=== PATIENT | male | born 1985 | race Caucasian/White ===

== ENCOUNTER 2017-09-23 14:15 | Emergency (ER) | payer OTHER ==
[~2017-09-23] VITALS: Ht 188 cm; Wt 84.0 kg
[2017-09-23 14:37] VITALS: BP 139/79; PULSE 90; RESP 16; TEMP 99.2; O2SAT 98
[2017-09-23] MEDS ORDERED: IBUPROFEN 800 MG TAB PO ONE (14:45)
[2017-09-23] MEDS ORDERED: BUPR1SUB6 SL (14:46)
--- NOTE | 2017-09-23 15:06 | PD ---
HPI Chief Complaint: Psychiatric Symptoms Time Seen by Provider: 14:39 Travel History International Travel<30 days: No Contact w/Intl Traveler<30days: No Traveled to known affect area: No History of Present Illness HPI 31-year-old male brought in under the Cervantes act for suicidal ideation. He reports that he wants to kill himself by either overdosing or driving into a tree. Patient states he woke up with some right-sided hip leg pain which has been radicular in nature. He denies any specific injury. Pain in the hip is improved with ambulation since this morning, but still feels about a 8 out of 10. He denies significant weakness or changes in bowel or bladder. He has no known drug allergies. PFSH Past Medical History ?: Not Social History Alcohol Use: Yes Tobacco Use: Yes Substance Use: Yes Allergies-Medications (Allergen,Severity, Reaction): Coded Allergies: No Known Allergies (Unverified , 09/23/17) Reported Meds & Prescriptions Reported Meds & Active Scripts Active Reported Buprenorphine-Naloxone 8-2 Mg Subl 1 Tab SL BID Review of Systems Except as stated in HPI: all other systems reviewed are Neg General / Constitutional: No: Fever Eyes: No: Visual changes HENT: No: Headaches Cardiovascular: No: Chest Pain or Discomfort Respiratory: No: Shortness of Breath Gastrointestinal: No: Abdominal Pain Genitourinary: No: Dysuria Musculoskeletal: Positive: Arthralgias, Limited ROM, Pain, No: Myalgias Skin: No Rash Neurologic: No: Weakness Psychiatric: No: Depression Endocrine: No: Polydipsia Hematologic/Lymphatic: No: Easy Bruising Physical Exam Narrative GENERAL: Patient appears in mild distress SKIN: Warm and dry. Normal color. Normal turgor. No rash. HEAD: Atraumatic. Normocephalic. EYES: Pupils equal and round. No scleral icterus. No injection or drainage. ENT: No nasal bleeding or discharge. Mucous membranes pink and moist. Pharynx is clear. Airways patent. NECK: Trachea midline. Supple and nontender CARDIOVASCULAR: Regular rate and rhythm. RESPIRATORY: No accessory muscle use. Clear to auscultation. Breath sounds equal bilaterally. GASTROINTESTINAL: Abdomen soft, non-tender, nondistended. Hepatic and splenic margins not palpable. MUSCULOSKELETAL: Extremities without clubbing, cyanosis, or edema. No obvious deformities. Patient has soft tissue tenderness along the right lower lumbar spine into the sciatic notch consistent with sciatica. There is no sign of bony involvement. No weakness is noted. Deep tendon reflexes are equal bilaterally. NEUROLOGICAL: Awake and alert. No obvious cranial nerve deficits. Motor grossly within normal limits. Five out of 5 muscle strength in the arms and legs. Normal speech. Data Data Last Documented VS Vital Signs Date Time Temp Pulse Resp B/P (MAP) Pulse Ox O2 Delivery O2 Flow Rate FiO2 09/23/17 21:43 98.0 70 19 123/76 (92) 98 Room Air Orders Orders Complete Blood Count With Diff (09/23/17 14:40) Comprehensive Metabolic Panel (09/23/17 14:40) Thyroid Stimulating Hormone (09/23/17 14:40) Urinalysis - C+S If Indicated (09/23/17 14:40) Psych Screen (09/23/17 14:40) Drug Screen, Random Urine (09/23/17 14:40) Alcohol (Ethanol) (09/23/17 14:40) Ibuprofen (Motrin) (09/23/17 14:45) Diet Regular Basic (09/23/17 Dinner) Ziprasidone Inj (Geodon Inj) (09/23/17 16:15) Diphenhydramine Inj (Benadryl Inj) (09/23/17 16:15) Diphenhydramine Inj (Benadryl Inj) (09/23/17 16:04) Ziprasidone Inj (Geodon Inj) (09/23/17 16:04) Nicotine 21 Mg Patch.24 Hr (Habitrol 21 (09/23/17 16:15) Labs Laboratory Tests Test 09/23/17 14:47 09/23/17 15:40 White Blood Count 7.9 TH/MM3 Red Blood Count 4.84 MIL/MM3 Hemoglobin 14.9 GM/DL Hematocrit 42.9 % Mean Corpuscular Volume 88.6 FL Mean Corpuscular Hemoglobin 30.8 PG Mean Corpuscular Hemoglobin Concent 34.7 % Red Cell Distribution Width 12.5 % Platelet Count 228 TH/MM3 Mean Platelet Volume 7.3 FL Neutrophils (%) (Auto) 67.5 % Lymphocytes (%) (Auto) 22.0 % Monocytes (%) (Auto) 8.6 % Eosinophils (%) (Auto) 1.4 % Basophils (%) (Auto) 0.5 % Neutrophils # (Auto) 5.3 TH/MM3 Lymphocytes # (Auto) 1.7 TH/MM3 Monocytes # (Auto) 0.7 TH/MM3 Eosinophils # (Auto) 0.1 TH/MM3 Basophils # (Auto) 0.0 TH/MM3 CBC Comment DIFF FINAL Differential Comment Blood Urea Nitrogen 8 MG/DL Creatinine 0.87 MG/DL Random Glucose 126 MG/DL Total Protein 7.8 GM/DL Albumin 3.8 GM/DL Calcium Level 8.7 MG/DL Alkaline Phosphatase 76 U/L Aspartate Amino Transf (AST/SGOT) 212 U/L Alanine Aminotransferase (ALT/SGPT) 134 U/L Total Bilirubin 0.6 MG/DL Sodium Level 141 MEQ/L Potassium Level 3.8 MEQ/L Chloride Level 105 MEQ/L Carbon Dioxide Level 28.2 MEQ/L Anion Gap 8 MEQ/L Estimat Glomerular Filtration Rate 102 ML/MIN Thyroid Stimulating Hormone 3rd Gen 0.871 uIU/ML Ethyl Alcohol Level LESS THAN 3 MG/DL Urine Color YELLOW Urine Turbidity CLEAR Urine pH 6.0 Urine Specific [place] 1.028 Urine Protein 30 mg/dL Urine Glucose (UA) NEG mg/dL Urine Ketones NEG mg/dL Urine Occult Blood NEG Urine Nitrite NEG Urine Bilirubin NEG Urine Urobilinogen 2.0 MG/DL Urine Leukocyte Esterase NEG Urine Squamous Epithelial Cells <1 /hpf Urine Mucus FEW /lpf Microscopic Urinalysis Comment CULT NOT INDICATED Urine Opiates Screen POS Urine Barbiturates Screen NEG Urine Amphetamines Screen NEG Urine Benzodiazepines Screen POS Urine Cocaine Screen POS Urine Cannabinoids Screen POS MDM Medical Decision Making Medical Screen Exam Complete: Yes Emergency Medical Condition: Yes Differential Diagnosis Cervantes act. Suicidal ideation. Lumbar back strain. Sciatica. Narrative Course Psych screen is ordered. Labs ordered including CBC, CMP, drug screen, thyroid screen, urinalysis, and alcohol level. Patient is given ibuprofen 800 mg p.o. Patient is medically cleared for psychiatric evaluation. Condition: Stable Marcelo Collazo September 23, 2017 15:06
[2017-09-23 15:54] LABS: AUTOMATED NEUTROPHIL # 5.3 TH/MM3 (1.8-7.7); BASOPHIL % 0.5 % (0.0-2.0); EOSINOPHIL # 0.1 TH/MM3 (0-0.4); EOSINOPHIL % 1.4 % (0.0-4.0); HEMATOCRIT 42.9 % (39.0-51.0); HEMOGLOBIN 14.9 GM/DL (13.0-17.0); LYMPHOCYTE # 1.7 TH/MM3 (1.0-4.8); MEAN CELL VOLUME 88.6 FL (80.0-100.0); MEAN CORPUSCULAR HEMOGLOBIN 30.8 PG (27.0-34.0); MEAN CORPUSCULAR HGB CONC 34.7 % (32.0-36.0); MEAN PLATELET VOLUME 7.3 FL (7.0-11.0); MONO % 8.6 % (0.0-8.0); MONOCYTE # 0.7 TH/MM3 (0-0.9); NEUT % 67.5 % (16.0-70.0); PLATELET COUNT 228 TH/MM3 (150-450); RED BLOOD COUNT 4.84 MIL/MM3 (4.50-5.90); RED CELL DISTRIBUTION WIDTH 12.5 % (11.6-17.2); WHITE BLOOD COUNT 7.9 TH/MM3 (4.0-11.0)
[2017-09-23] MEDS ORDERED: ZIPRASIDONE MESYLATE 20 MG VIAL IM ONE ×2 (16:04→16:15)
[2017-09-23] MEDS ORDERED: diphenhydrAMINE HCL 50 MG/ML VIAL ONE (16:04)
[2017-09-23 16:09] LABS: ALBUMIN 3.8 GM/DL (3.4-5.0); AST (GOT) 212 U/L (15-37); BICARBONATE 28.2 MEQ/L (21.0-32.0); BLOOD UREA NITROGEN 8 MG/DL (7-18); CALCIUM 8.7 MG/DL (8.5-10.1); CHLORIDE 105 MEQ/L (98-107); CREATININE 0.87 MG/DL (0.60-1.30); GLOMERULAR FILTRATION RATE 102 ML/MIN (>89); GLUCOSE,RANDOM 126 MG/DL (74-106); SODIUM (NA) 141 MEQ/L (136-145)
[2017-09-23 16:10] LABS: ALT (GPT) 134 U/L (12-78)
[2017-09-23 16:11] LABS: BILIRUBIN, URINE NEG (NEG); BLOOD, URINE NEG (NEG); GLUCOSE,URINE NEG (NEG); KETONE, URINE NEG (NEG); MUCUS URINE FEW /lpf (OCC); NITRITE,URINE NEG (NEG); SQUAMOUS EPITHELIAL CELL URINE <1 /hpf (0-5); URINE COLOR YELLOW (YELLW/STRAW); URINE LEUKOCYTE ESTERASE NEG (NEG)
[2017-09-23] MEDS ORDERED: diphenhydrAMINE HCL 50 MG/ML VIAL IM ONE (16:15)
[2017-09-23] MEDS ORDERED: NICOTINE 21 MG/24 HR PATCH T-DERMAL ONE (16:15)
[2017-09-23 16:20] LABS: ALKALINE PHOSPHATASE 76 U/L (45-117); TOTAL BILIRUBIN ADULT 0.6 MG/DL (0.2-1.0); TOTAL PROTEIN 7.8 GM/DL (6.4-8.2)
--- NOTE | 2017-09-23 16:30 | PD ---
History of Present Illness Chief Complaint: Psychiatric Symptoms Time Seen by Provider: 16:10 Travel History International Travel<30 Days: No Contact w/Intl Traveler<30days: No Known affected area: No Legal Status Legal Status: avolution History of Present Illness: History of Present Illness HPI 31-year-old male brought in under the [place] act for suicidal ideation. He reports that he wants to kill himself by either overdosing or driving into a tree. Patient states he woke up with some right-sided hip leg pain which has been radicular in nature. He denies any specific injury. Pain in the hip is improved with ambulation since this morning, but still feels about a 8 out of 10. He denies significant weakness or changes in bowel or bladder. He has no known drug allergies. Patient is heard yelling on the phone. Patient was asked to lower his voice. he comes out of his room and is observed pacing on the unit and states " I'm looking for the door to get out". Patient is redirected to his room. He is visibly agitated. I attempt to speak with the patient and offer him medication to help him calm down. He refuses and states " If you try and give me medication you will get a fight. Security was called for back up. Patient picks up his mattress in an attempt to barricade himself in the room. Patient is ordered Geodon and Benadryl. Patient accepted medication after above incident. PFSH Past Medical History ?: Not Psychiatric History Psychiatric History Hx Psychiatric Treatment: Unable to obtain Social History Hx Alcohol Use: Yes Hx Tobacco Use: Yes Hx Substance Use: Yes Family Psychiatric History Unknown. Allergies-Medications (Allergen,Severity, Reaction): Coded Allergies: No Known Allergies (Unverified , 09/23/17) Reported Meds & Prescriptions Reported Meds & Active Scripts Active Reported Buprenorphine-Naloxone 8-2 Mg Subl 1 Tab SL BID Review of Systems ROS Limitations: Uncooperative Mental Status Examination Appearance: Disheveled Consciousness: Alert Orientation: x4 Motor Activity: Normal gait Speech: Unremarkable Language: Adequate Fund of Knowledge: Adequate Attention and Concentration: Adequate Memory: Unremarkable (not assessed) Mood: Angry, Oppositional, Other (agitated) Affect: Irritable Thought Process & Associations: Intact, Logical, Goal directed Thought Content: Appropriate Hallucination Type: None Delusion Type: None Suicidal Ideation: No Suicidal Plan: No Suicidal Intention: No Homicidal Ideation: No Homicidal Plan: No Homicidal Intention: No Insight: Poor Judgment: Impulsive MDM Medical Decision Making Medical Record Reviewed: Yes Assessment/Plan Patient at this time remains under a BA. Will evaluate in the morning. Orders Orders Complete Blood Count With Diff (09/23/17 14:40) Comprehensive Metabolic Panel (09/23/17 14:40) Thyroid Stimulating Hormone (09/23/17 14:40) Urinalysis - C+S If Indicated (09/23/17 14:40) Psych Screen (09/23/17 14:40) Drug Screen, Random Urine (09/23/17 14:40) Alcohol (Ethanol) (09/23/17 14:40) Ibuprofen (Motrin) (09/23/17 14:45) Diet Regular Basic (09/23/17 Dinner) Ziprasidone Inj (Geodon Inj) (09/23/17 16:15) Diphenhydramine Inj (Benadryl Inj) (09/23/17 16:15) Diphenhydramine Inj (Benadryl Inj) (09/23/17 16:04) Ziprasidone Inj (Geodon Inj) (09/23/17 16:04) Nicotine 21 Mg Patch.24 Hr (Habitrol 21 (09/23/17 16:15) Results Vital Signs Date Time Temp Pulse Resp B/P (MAP) Pulse Ox O2 Delivery O2 Flow Rate FiO2 09/23/17 14:37 99.2 90 16 139/79 (99) 98 Laboratory Tests Test 09/23/17 14:47 09/23/17 15:40 White Blood Count 7.9 Red Blood Count 4.84 Hemoglobin 14.9 Hematocrit 42.9 Mean Corpuscular Volume 88.6 Mean Corpuscular Hemoglobin 30.8 Mean Corpuscular Hemoglobin Concent 34.7 Red Cell Distribution Width 12.5 Platelet Count 228 Mean Platelet Volume 7.3 Neutrophils (%) (Auto) 67.5 Lymphocytes (%) (Auto) 22.0 Monocytes (%) (Auto) 8.6 Eosinophils (%) (Auto) 1.4 Basophils (%) (Auto) 0.5 Neutrophils # (Auto) 5.3 Lymphocytes # (Auto) 1.7 Monocytes # (Auto) 0.7 Eosinophils # (Auto) 0.1 Basophils # (Auto) 0.0 CBC Comment DIFF FINAL Differential Comment Blood Urea Nitrogen 8 Creatinine 0.87 Random Glucose 126 Total Protein 7.8 Albumin 3.8 Calcium Level 8.7 Alkaline Phosphatase 76 Aspartate Amino Transf (AST/SGOT) 212 Alanine Aminotransferase (ALT/SGPT) 134 Total Bilirubin 0.6 Sodium Level 141 Potassium Level 3.8 Chloride Level 105 Carbon Dioxide Level 28.2 Anion Gap 8 Estimat Glomerular Filtration Rate 102 Thyroid Stimulating Hormone 3rd Gen 0.871 Ethyl Alcohol Level LESS THAN 3 Urine Color YELLOW Urine Turbidity CLEAR Urine pH 6.0 Urine Specific [place] 1.028 Urine Protein 30 Urine Glucose (UA) NEG Urine Ketones NEG Urine Occult Blood NEG Urine Nitrite NEG Urine Bilirubin NEG Urine Urobilinogen 2.0 Urine Leukocyte Esterase NEG Urine Squamous Epithelial Cells <1 Urine Mucus FEW Microscopic Urinalysis Comment CULT NOT INDICATED Condition: Stable ForrestGiovana Roseline Braun [facility] September 23, 2017 16:30
[2017-09-23 16:52] VITALS: BP 119/70; PULSE 72; RESP 16; TEMP 97.9; O2SAT 98
[2017-09-23 21:43] VITALS: BP 123/76; PULSE 70; RESP 19; TEMP 98; O2SAT 98
[2017-09-24 02:10] VITALS: BP 129/65; PULSE 79; RESP 18; TEMP 99.2; O2SAT 98
[2017-09-24 02:28] VITALS: BP 129/65; PULSE 79; RESP 18; TEMP 99.2; O2SAT 98
[2017-09-24 06:34] VITALS: BP 132/71; PULSE 75; RESP 18; TEMP 98.7; O2SAT 98
--- NOTE | 2017-09-24 08:34 | PD ---
Physical Exam Date Seen by Provider: September 24, 2017 Narrative 31-year-old male brought to the emergency department as a cervantes act for suicidal ideations. Patient was evaluated by the emergency provider and medically cleared to see psych. The psychiatric provider has cleared this patient and has lifted the Cervantes act. He denies suicidal ideations at this time. Patient has a place to go home to and will do so once discharged. Patient will be discharged home. Data Data Last Documented VS Vital Signs Date Time Temp Pulse Resp B/P (MAP) Pulse Ox O2 Delivery O2 Flow Rate FiO2 09/24/17 09:16 09/24/17 06:34 98.7 75 18 98 Room Air Orders Orders Complete Blood Count With Diff (09/23/17 14:40) Comprehensive Metabolic Panel (09/23/17 14:40) Thyroid Stimulating Hormone (09/23/17 14:40) Urinalysis - C+S If Indicated (09/23/17 14:40) Psych Screen (09/23/17 14:40) Drug Screen, Random Urine (09/23/17 14:40) Alcohol (Ethanol) (09/23/17 14:40) Ibuprofen (Motrin) (09/23/17 14:45) Diet Regular Basic (09/23/17 Dinner) Ziprasidone Inj (Geodon Inj) (09/23/17 16:15) Diphenhydramine Inj (Benadryl Inj) (09/23/17 16:15) Diphenhydramine Inj (Benadryl Inj) (09/23/17 16:04) Ziprasidone Inj (Geodon Inj) (09/23/17 16:04) Nicotine 21 Mg Patch.24 Hr (Habitrol 21 (09/23/17 16:15) Ed Discharge Order (09/24/17 08:50) Labs Laboratory Tests Test 09/23/17 14:47 09/23/17 15:40 White Blood Count 7.9 TH/MM3 Red Blood Count 4.84 MIL/MM3 Hemoglobin 14.9 GM/DL Hematocrit 42.9 % Mean Corpuscular Volume 88.6 FL Mean Corpuscular Hemoglobin 30.8 PG Mean Corpuscular Hemoglobin Concent 34.7 % Red Cell Distribution Width 12.5 % Platelet Count 228 TH/MM3 Mean Platelet Volume 7.3 FL Neutrophils (%) (Auto) 67.5 % Lymphocytes (%) (Auto) 22.0 % Monocytes (%) (Auto) 8.6 % Eosinophils (%) (Auto) 1.4 % Basophils (%) (Auto) 0.5 % Neutrophils # (Auto) 5.3 TH/MM3 Lymphocytes # (Auto) 1.7 TH/MM3 Monocytes # (Auto) 0.7 TH/MM3 Eosinophils # (Auto) 0.1 TH/MM3 Basophils # (Auto) 0.0 TH/MM3 CBC Comment DIFF FINAL Differential Comment Blood Urea Nitrogen 8 MG/DL Creatinine 0.87 MG/DL Random Glucose 126 MG/DL Total Protein 7.8 GM/DL Albumin 3.8 GM/DL Calcium Level 8.7 MG/DL Alkaline Phosphatase 76 U/L Aspartate Amino Transf (AST/SGOT) 212 U/L Alanine Aminotransferase (ALT/SGPT) 134 U/L Total Bilirubin 0.6 MG/DL Sodium Level 141 MEQ/L Potassium Level 3.8 MEQ/L Chloride Level 105 MEQ/L Carbon Dioxide Level 28.2 MEQ/L Anion Gap 8 MEQ/L Estimat Glomerular Filtration Rate 102 ML/MIN Thyroid Stimulating Hormone 3rd Gen 0.871 uIU/ML Ethyl Alcohol Level LESS THAN 3 MG/DL Urine Color YELLOW Urine Turbidity CLEAR Urine pH 6.0 Urine Specific [place] 1.028 Urine Protein 30 mg/dL Urine Glucose (UA) NEG mg/dL Urine Ketones NEG mg/dL Urine Occult Blood NEG Urine Nitrite NEG Urine Bilirubin NEG Urine Urobilinogen 2.0 MG/DL Urine Leukocyte Esterase NEG Urine Squamous Epithelial Cells <1 /hpf Urine Mucus FEW /lpf Microscopic Urinalysis Comment CULT NOT INDICATED Urine Opiates Screen POS Urine Barbiturates Screen NEG Urine Amphetamines Screen NEG Urine Benzodiazepines Screen POS Urine Cocaine Screen POS Urine Cannabinoids Screen POS MDM Supervised Visit with SAMUEL: No Diagnosis Primary Impression: Polysubstance abuse Patient Instructions: General Instructions Departure Forms: Tests/Procedures Disposition: DISCHARGE HOME Condition: Stable Rosita Deal September 24, 2017 08:34
--- NOTE | 2017-09-24 12:25 | PD.PSY.CON ---
Provisional Diagnosis Admission Date [place] I. Substance induced mood disorder, Polysubstance dependence including benzodiazepines, marijuana, cocaine [place] II. Unspecified psychosis [place] III. No medical history History of Present Illness Service Psychiatry Consult Requested By ER Reason for Consult Aggressive behavior, suicidal Primary Care Physician No Primary Care Physician HPI The patient is a 31-year-old man, domiciled with his girlfriend in [facility] [place], employed as a marine contractor, with psychiatric history of polysubstance dependence including heroin, marijuana, cocaine and Xanax, no previous psychiatric hospitalizations, no previous suicidal attempts, no significant medical history, who was brought in under the Cervantes act for suicidal ideation. He reported initially that he wants to kill himself by either overdosing or driving into a tree. Patient states he woke up with some right-sided hip leg pain which has been radicular in nature. He denies any specific injury. Pain in the hip is improved with ambulation since this morning , but still feels about a 8 out of 10. He denies significant weakness or changes in bowel or bladder. He has no known drug allergies.Patient is heard yelling on the phone. Patient was asked to lower his voice. he comes out of his room and is observed pacing on the unit and states " I'm looking for the door to get out". Patient is redirected to his room. He is visibly agitated. I attempt to speak with the patient and offer him medication to help him calm down. He refuses and states " If you try and give me medication you will get a fight. Security was called for back up. Patient picks up his mattress in an attempt to barricade himself in the room. Patient is ordered Geodon and Benadryl. Patient accepted medication after above incident. On psychiatric evaluation this morning the patient is calm, cooperative and even pleasant. Patient is apologizing about his behavior yesterday. Patient states that most probably he was "very high" after using several drugs. He says that he had an argument with his girlfriend and he went out of control. He now denies hopelessness, denies anhedonia, denies helplessness, denies worthlessness, denies suicidal enemas ideation. He denies visual and auditory hallucinations. No agitation, no aggressive behavior, no delusions, no paranoia, are present. He is oriented 3. He reports almost daily use of heroine and marijuana, occasional use of cocaine and street Xanax. Review of Systems Constitutional: DENIES: Diaphoretic episodes, Fatigue, Fever, Weight gain, Weight loss, Chills, Dizziness, Change in appetite, Night Sweats Endocrine: DENIES: Heat/cold intolerance, Polydipsia, Polyuria, Polyphagia Eyes: DENIES: Blurred vision, Diplopia, Eye inflammation, Eye pain, Vision loss , Photosensitivity, Double Vision Ears, nose, mouth, throat: DENIES: Tinnitus, Hearing loss, Vertigo, Nasal discharge, Oral lesions, Throat pain, Hoarseness, Ear Pain, Running Nose, Epistaxis, Sinus Pain, Toothache, Odynophagia Respiratory: DENIES: Apneas, Cough, Snoring, Wheezing, Hemoptysis, Sputum production, Shortness of breath Cardiovascular: DENIES: Chest pain, Palpitations, Syncope, Dyspnea on Exertion , PND, Lower Extremity Edema, Orthopnea, Claudication Gastrointestinal: DENIES: Abdominal pain, Black stools, Bloody stools, Constipation, Diarrhea, Nausea, Vomiting, Difficulty Swallowing, Anorexia Genitourinary: DENIES: Sexual dysfunction, Urinary frequency, Urinary incontinence, Urgency, Hematuria, Dysuria, Nocturia, Penile Discharge, Testicular Pain, Testicular Swelling Musculoskeletal: DENIES: Joint pain, Muscle aches, Stiffness, Joint Swelling, Back pain, Neck pain Integumentary: DENIES: Abnormal pigmentation, Nail changes, Pruritus, Rash Hematologic/lymphatic: DENIES: Bruising, Lymphadenopathy Immunologic/allergic: DENIES: Eczema, Urticaria Neurologic: DENIES: Abnormal gait, Headache, Localized weakness, Paresthesias, Seizures, Speech Problems, Tremor, Poor Balance Psychiatric: DENIES: Anxiety, Confusion, Mood changes, Depression, Hallucinations, Agitation, Suicidal Ideation, Homicidal Ideation, Delusions Past Family Social History Coded Allergies: No Known Allergies (Unverified , 09/23/17) Reported Medications Buprenorphine-Naloxone (Buprenorphine-Naloxone) 8-2 Mg Subl, 1 TAB SL BID, TAB 09/23/17 Family Psych History No family psychiatric history Social History Patient was born and raised in [place], he lives in [facility] with his girlfriend, employed as a marine contractor, his highest level of education is high school Patient's Strengths (min. 2) Verbal communicate Physical Exam No tremors, no EPS, no withdrawal, no psychomotor retardation or agitation Vital Signs Vital Signs Date Time Temp Pulse Resp B/P (MAP) Pulse Ox O2 Delivery O2 Flow Rate FiO2 09/24/17 09:16 09/24/17 06:34 98.7 75 18 98 Room Air I/O 09/24/17 09/24/17 09/25/17 08:00 16:00 00:00 Intake Total 500 ml Balance 500 ml Lab Results Test 09/23/17 14:47 09/23/17 15:40 White Blood Count 7.9 TH/MM3 Red Blood Count 4.84 MIL/MM3 Hemoglobin 14.9 GM/DL Hematocrit 42.9 % Mean Corpuscular Volume 88.6 FL Mean Corpuscular Hemoglobin 30.8 PG Mean Corpuscular Hemoglobin Concent 34.7 % Red Cell Distribution Width 12.5 % Platelet Count 228 TH/MM3 Mean Platelet Volume 7.3 FL Neutrophils (%) (Auto) 67.5 % Lymphocytes (%) (Auto) 22.0 % Monocytes (%) (Auto) 8.6 % Eosinophils (%) (Auto) 1.4 % Basophils (%) (Auto) 0.5 % Neutrophils # (Auto) 5.3 TH/MM3 Lymphocytes # (Auto) 1.7 TH/MM3 Monocytes # (Auto) 0.7 TH/MM3 Eosinophils # (Auto) 0.1 TH/MM3 Basophils # (Auto) 0.0 TH/MM3 CBC Comment DIFF FINAL Differential Comment Blood Urea Nitrogen 8 MG/DL Creatinine 0.87 MG/DL Random Glucose 126 MG/DL Total Protein 7.8 GM/DL Albumin 3.8 GM/DL Calcium Level 8.7 MG/DL Alkaline Phosphatase 76 U/L Aspartate Amino Transf (AST/SGOT) 212 U/L Alanine Aminotransferase (ALT/SGPT) 134 U/L Total Bilirubin 0.6 MG/DL Sodium Level 141 MEQ/L Potassium Level 3.8 MEQ/L Chloride Level 105 MEQ/L Carbon Dioxide Level 28.2 MEQ/L Anion Gap 8 MEQ/L Estimat Glomerular Filtration Rate 102 ML/MIN Thyroid Stimulating Hormone 3rd Gen 0.871 uIU/ML Ethyl Alcohol Level LESS THAN 3 MG/DL Urine Color YELLOW Urine Turbidity CLEAR Urine pH 6.0 Urine Specific [place] 1.028 Urine Protein 30 mg/dL Urine Glucose (UA) NEG mg/dL Urine Ketones NEG mg/dL Urine Occult Blood NEG Urine Nitrite NEG Urine Bilirubin NEG Urine Urobilinogen 2.0 MG/DL Urine Leukocyte Esterase NEG Urine Squamous Epithelial Cells <1 /hpf Urine Mucus FEW /lpf Microscopic Urinalysis Comment CULT NOT INDICATED Urine Opiates Screen POS Urine Barbiturates Screen NEG Urine Amphetamines Screen NEG Urine Benzodiazepines Screen POS Urine Cocaine Screen POS Urine Cannabinoids Screen POS Mental Status Examination Appearance: Appropriate Consciousness: Alert Orientation: x4 Motor Activity: Normal gait Speech: Unremarkable Language: Adequate Fund of Knowledge: Adequate Attention and Concentration: Adequate Memory: Unremarkable (not assessed) Mood: Appropriate, Other (agitated) Affect: Appropriate Thought Process & Associations: Intact Thought Content: Appropriate Hallucination Type: None Delusion Type: None Suicidal Ideation: No Suicidal Plan: No Suicidal Intention: No Homicidal Ideation: No Homicidal Plan: No Homicidal Intention: No Insight: Adequate Judgment: Adequate Assessment & Plan Problem List: (1) Polysubstance dependence ICD Codes: F19.20 - Other psychoactive substance dependence, uncomplicated Assessment & Plan: On psychiatric evaluation the patient is calm, cooperative, logical, coherent and relevant. Different than yesterday afternoon when the patient had to be medicated with Geodon 20 mg and Benadryl 25 IM to calm him the , the patient now seems to be his baseline. He denies symptomatology of depression, anxiety, che and psychosis. No paranoia, no loosening of associations, no agitation or aggressive behavior present. Oriented 3. His recent suicidal statements and aggressive behavior were most probably the result of multiple drugs intoxication. He is now clinically sober. We have offered detox, but the patient declined. Brief supportive psychotherapy, motivational psychoeducation provided. Patient does not meet criteria for involuntary psychiatric admission at this moment. Assessment & Plan Estimated LOS: Andrea Ponce MD September 24, 2017 12:25
== END 2017-09-24 09:40 | disposition home or self-care (01) ==
LOC: NEPJ 14:15
DX: F19.20 Other psychoactive substance dependence, uncomplicated (principal); Z72.0 Tobacco use
CPT/HCPCS: 80053; 80307; 81001; 84443; 85025; 96372; 99284; J1200; J3486